=== PATIENT | female | born 1980 ===

== ENCOUNTER 2016-10-15 10:58 | Day surgery (SDC) | payer BC, OTHER ==
[2016-10-12 10:11] VITALS: BMI 32.5
[2016-10-15] MEDS ORDERED: Lactated Ringer's 1,000 ML IV ONE ×3 (11:39→17:00)
[2016-10-15 12:28] LABS: HEMOGLOBIN 12.1 g/dL (12.0-16.0); MEAN CELL VOLUME 86.7 fl (81.0-99.0); MEAN CORPUSCULAR HEMOGLOBIN 27.9 pg (27.0-31.0); MEAN CORPUSCULAR HGB CONC 32.2 g/dL (33.0-37.0); RBC 4.34 Mil/uL (3.80-5.20); RED CELL DISTRIBUTION WIDTH 15.2 % (11.5-14.5); WHITE BLOOD COUNT 8.5 K/uL (4.8-10.8)
[2016-10-15] MEDS ORDERED: Lidocaine 1% Inj (20ml) ONE (12:29)
[2016-10-15] MEDS ORDERED: Bupivacaine 0.5% Inj(30mL) ONE (12:29)
[2016-10-15 12:48] LABS: PARTIAL THROMBOPLASTIN TIME 31.2 Seconds (25.6-37.1); PROTHROMBIN TIME 11.6 Seconds (9.8-13.1)
[2016-10-15] MEDS ORDERED: Rocuronium 10 mg/ml (5 ml) ONE (13:06)
[2016-10-15] MEDS ORDERED: Propofol 10 mg/ml Inj (20 ML) ONE (13:06)
[2016-10-15] MEDS ORDERED: Succinylcholine 200 mg/10 ml Inj IV ONE (13:08)
[2016-10-15] MEDS ORDERED: Dexamethasone 4 mg/1 ml ONE (13:54)
[2016-10-15] MEDS ORDERED: ePHEDrine 50 mg/ml Inj ONE (13:55)
[2016-10-15] MEDS ORDERED: Neostigmine Methylsulfate 3mg/3ml Syringe IV ONE (14:09)
[2016-10-15] MEDS ORDERED: Lactated Ringer's 1,000 ML IV SCH (14:32)
[2016-10-15] MEDS: HYDROmorphone 0.5 mg/0.5 ml ISec IVP PRN ×3 (14:35→15:35)
[2016-10-15] MEDS ORDERED: HYDROmorphone 0.5 mg/0.5 ml ISec ONE (14:35)
[2016-10-15] MEDS ORDERED: Oxycodone/Acetaminophen 5/325 mg Tab PO ONE ×2 (16:06→17:34)
[2016-10-15 16:11] VITALS: TEMP 98.3
[2016-10-16 11:50] VITALS: BP 137/91; PULSE 86; RESP 18; O2SAT 100
--- NOTE | 2016-10-18 22:14 | OP ---
PROCEDURE DATE: 10/15/2016 PREOPERATIVE DIAGNOSIS: Multiparity. POSTOPERATIVE DIAGNOSIS: Multiparity. SURGEON: Tanner Coronel MD BAKERY HELPER: Roxie *------* general assistant. ANESTHESIA: Lizzy Rowan MD, general anesthesia. PROCEDURE: Bilateral tubal with cautery. FINDINGS: Tubes, ovaries, and uterus within normal limits. DESCRIPTION OF PROCEDURE: With the patient in the dorsal lithotomy position under general anesthesia, the patient was prepped and draped in the usual sterile manner. A straight catheter was used to empty the bladder after which single-tooth tenaculum was used and anterior cervix was grasped and dilated, after which a HUMI uterine manipulator was put into place. After this was done, I moved to the abdomen where the abdomen was tented and a Veress needle was introduced inflating the abdomen to about 4 liters of CO2. Following this, an incision 1 cm was made below the umbilicus and #10 trocar was introduced with sleeve left into place. Following this, the laparoscope with camera attached was put into place into the pelvic cavity and the above findings were visualized. A second trocar was entered about the midline 2 to 3 cm above the pubic bone. After this was done, the uterus, tubes, and ovaries were identified and the uterus was elevated using manipulator and the tubes were cauterized bilaterally extensively maintaining hemostasis. After this was done, the abdomen was deflated; the instruments were removed from the pelvic and abdominal cavity and the incisions were closed with 2-0 Vicryl and Dermabond. Roxie was present from the beginning of the surgery to the end. She assisted in preparing the patient for surgery and she did *------* and the right side of tube and I did cauterize on my side. She was there from the beginning to the end of the surgery. The patient tolerated procedure well and was in satisfactory condition on her way to the recovery room. Blood loss was minimal. Tanner Coronel MD
== END 2016-10-15 19:16 | disposition home or self-care (01) ==
LOC: H.OPSURG 10:58
PROVIDERS: ATTEND Specialist
DX: Z30.2 Encounter for sterilization (principal)
CPT/HCPCS: 36415; 58670; 85027; 85610; 85730; J0330; J0694; J1100; J1170; J1885; J2405; J2704; J2710; J3010; J7030; J7120